=== PATIENT | male | born 1950 | race Caucasian/White ===

== ENCOUNTER → 2017-03-25 | Outpatient (CLI) | payer OTHER, MEDICARE ==
[~2017-03-25] MED LIST: ANTIVERT25 MG PO; CALCIUM 600 MG1 EACH PO; DECADRON1 MG PO; DECADRON4 MG PO; DILAUDID 4MG4 MG PO; DURAGESIC 12 M12 MCG TOP; FEOSOL325 MG PO; FLEXERIL10 MG PO; GLUCOPHAGE500 MG PO; GLUCOSAMINE HC500 MG PO; HYDROCODON-ACE1 EAC2 PO; KEFLEX500 MG PO; LOVENOX 10100 MG/1 M SUB-Q; LYRICA 50MG CAP50 MG PO; MILK OF MA400 MG/5 M PO; MIRALAX PO527 GM/BOT PO; MORPHINE 15MG I15 MG PO; MS CONTIN100 MG PO; MS CONTIN15 MG PO; MULTI VITAMIN1 EACH PO; NAPROSYN375 MG; PERCOCET 5-3251 EACH PO; PRILOSEC20 MG PO; PRINIVIL (ZESTRI5 MG PO; SENOKOT S (S1 TABLET PO; TYLENOL325 MG PO; VITAMIN B-1000 MCG/M IM; XARELTO15 MG PO; XARELTO20 MG PO; ZOFRAN4 MG PO
== END | disposition disaster alternative care site (69) ==
LOC: GRAD 03-24 10:00
DX: C61 Malignant neoplasm of prostate (principal); C79.51 Secondary malignant neoplasm of bone; E86.0 Dehydration; R11.2 Nausea with vomiting, unspecified; G89.3 Neoplasm related pain (acute) (chronic); R60.0 Localized edema; I82.402 Acute embolism and thrombosis of unspecified deep veins of left lower extremity; I26.99 Other pulmonary embolism without acute cor pulmonale; D51.8 Other vitamin B12 deficiency anemias; D50.0 Iron deficiency anemia secondary to blood loss (chronic); K90.9 Intestinal malabsorption, unspecified
CPT/HCPCS: A9503